=== PATIENT | female | born 1945 | race Caucasian/White ===

== ENCOUNTER 2016-07-31 12:17 | Inpatient (IN) | payer OTHER, MEDICARE ==
[2016-07-31 13:09] LABS: COLOR YELLOW; LEUKOCYTE ESTERASE,URINE NEGATIVE (NEGATIVE); NITRITE,URINE NEGATIVE (NEGATIVE)
[2016-07-31 13:26] LABS: % IMMATURE GRANULYOCYTES 0.8 % (0.0-1.1); ABSOLUTE IMMATURE GRANULOCYTES 0.04 10^3/uL (0.00-0.10); ADD DIFF? NO; ADD MORPH? NO; ADD SCAN? NO; ATYPICAL LYMPHOCYTE FLAG 10 (0-99); FRAGMENT RBC FLAG 0 (0-99); HEMATOCRIT 36.8 % (38.0-47.0); HEMOGLOBIN 12.6 g/dL (12.6-16.3); LEFT SHIFT FLG 0 (0-99); LIPEMIA HEMOLYSIS FLAG 90 (0-99); MEAN CELL HEMOGLOBIN 32.3 pg (27.9-34.1); MEAN CELL HEMOGLOBIN CONCENTR. 34.2 g/dL (32.4-36.7); MEAN CELL VOLUME 94.4 fL (81.5-99.8); MEAN PLATELET VOLUME 8.5 fL (8.7-11.7); PLATELET CLUMPS FLAG 0 (0-99); PLATELET COUNT 254 10^3/uL (150-400); RED CELL DISTRIBUTION WIDTH 12.3 % (11.5-15.2)
[2016-07-31 13:39] LABS: ANION GAP 10 mEq/L (8-16); CALCIUM 9.5 mg/dL (8.5-10.4); CARBON DIOXIDE 24 mEq/l (22-31); CHLORIDE 99 mEq/L (97-110); CREATININE 0.7 mg/dL (0.6-1.0); GLOMERULAR FILTRATION RATE > 60; GLUCOSE 94 mg/dL (70-100); POTASSIUM 3.6 mEq/L (3.5-5.2); SODIUM 133 mEq/L (134-144)
--- NOTE | 2016-07-31 13:43 | EDPHY ---
H & P Stated Complaint: Per Dr Suarez failure to thrive Time Seen by Provider: 07/31/16 12:50 HPI/ROS: CHIEF COMPLAINT: Failure to thrive HISTORY OF PRESENT ILLNESS: The patient presents to the emergency department with failure to thrive. She has a history of expressive dementia. She apparently has been living in [facility]. She had a friend bring her to her primary care provider's office today where she was noted to be disheveled, inappropriately undressing a markedly confused. The patient is unable to tell me which medications she takes. The patient does deny any acute complaints of pain. She is extremely disoriented and does not know time or place. REVIEW OF SYSTEMS: A comprehensive 10 point review of systems is unobtainable secondary to her dementia Source: Patient Exam Limitations: No limitations - Personal History Current Tetanus/Diphtheria Vaccine: Unsure Current Tetanus Diphtheria and Acellular Pertussis (TDAP): Unsure - Medical/Surgical History Hx Asthma: No Hx Chronic Respiratory Disease: No Hx Diabetes: No Hx Cardiac Disease: No Hx Renal Disease: No Hx Cirrhosis: No Hx Alcoholism: No Hx HIV/AIDS: No Hx Splenectomy or Spleen Trauma: No Other PMH: unable to give information - Social History Smoking Status: Never smoked - Physical Exam Exam: General Appearance: Thin frail cachectic woman, no acute distress Eyes: Pupils equal and round no pallor or injection ENT, Mouth: Mucous membranes moist Respiratory: There are no retractions, lungs are clear to auscultation Cardiovascular: Regular rate and rhythm Gastrointestinal: Abdomen is soft and nontender, no masses, bowel sounds normal Neurological: Alert and oriented x1, 5/5 strength noted all 4 extremities, cranial nerves 2-12 intact Skin: Warm and dry, no rashes Musculoskeletal: Neck is supple nontender Extremities: symmetrical, full range of motion Constitutional: Initial Vital Signs Temperature (C) 37.0 C 07/31/16 12:19 Heart Rate 83 07/31/16 12:19 Respiratory Rate 16 07/31/16 12:19 Blood Pressure 122/63 H 07/31/16 12:19 O2 Sat (%) 95 07/31/16 12:19 O2 Delivery Mode Room Air Allergies/Adverse Reactions: No Known Allergies Allergy (Verified 07/31/16 12:25) Home Medications: Medication Instructions Recorded oxyCODONE IR [Oxycodone Ir (*)] 2.5 mg PO DAILY@1800 PRN 04/27/12 Acetaminophen [Tylenol ES 500 mg 500 mg PO TID 07/31/16 (*)] Diclofenac Sodium [Voltaren Gel 2 gm TP QID 07/31/16 (*)] Donepezil HCl [Aricept 5 MG (*)] 5 mg PO HS 07/31/16 Duloxetine HCl [Cymbalta] 20 mg PO BID 07/31/16 Estradiol [Estrace Vaginal (*)] 0.125 cholo VG Q4D@21 07/31/16 Glucosamine/Chondroitin 1 each PO DAILY 07/31/16 [Glucosamine/Chondroitin (*)] Herbals/Supplements -Info Only 1 ea PO DAILY 07/31/16 Ibuprofen [Motrin (*)] 200 mg PO BID 07/31/16 Levothyroxine [Synthroid 150 mcg 150 mcg PO HOPKINS 07/31/16 (*)] Levothyroxine [Synthroid 75 mcg 75 mcg PO MOTUWETHFRSA 07/31/16 (*)] Melatonin [Melatonin 3 MG (*)] 3 mg PO HS 07/31/16 traZODone [traZODONE 50MG (*)] 50 - 100 mg PO HS PRN 07/31/16 Medical Decision Making - Diagnostics Imaging: CT head without contrast: Atrophy noted, no acute intracranial process present. ED Course/Re-evaluation: The patient is referred to the emergency department from her primary care provider Dr. Maye Suarez. The patient is unable to provide much history but in speaking with Dr. Suarez, the patient has had fairly significant progression of her dementia and now has significant failure to thrive. The patient is currently being investigated through the Adult protective Services. In the emergency department, the patient is noted to be in no acute distress she is quite deconditioned and confused. The patient's head CT scan demonstrates no evidence of an acute intracranial process. The patient's laboratory studies do not demonstrate an obvious acute explanation for encephalopathy. Consultation is made with the hospitalist service for admission. She will be admitted by Dr. Jean Marie Ruiz this evening. Differential Diagnosis: Differential diagnosis considered includes intracranial hemorrhage, urinary tract infection, dehydration, metabolic abnormality, progressive dementia - Data Points Laboratory Results: Laboratory Results 07/31/16 13:10 07/31/16 13:10 07/31/16 07/31/16 13:10 12:45 WBC 5.02 10^3/uL (3.80-9.50) RBC 3.90 L 10^6/uL (4.18-5.33) Hgb 12.6 g/dL (12.6-16.3) Hct 36.8 L % (38.0-47.0) MCV 94.4 fL (81.5-99.8) MCH 32.3 pg (27.9-34.1) MCHC 34.2 g/dL (32.4-36.7) RDW 12.3 % (11.5-15.2) Plt Count 254 10^3/uL (150-400) MPV 8.5 L fL (8.7-11.7) Neut % (Auto) 78.1 H % (39.3-74.2) Lymph % (Auto) 13.3 L % (15.0-45.0) Tift % (Auto) 7.0 % (4.5-13.0) Eos % (Auto) 0.2 L % (0.6-7.6) Baso % (Auto) 0.6 % (0.3-1.7) Nucleat RBC Rel Count 0.0 % (0.0-0.2) Absolute Neuts (auto) 3.92 10^3/uL (1.70-6.50) Absolute Lymphs (auto) 0.67 L 10^3/uL (1.00-3.00) Absolute Monos (auto) 0.35 10^3/uL (0.30-0.80) Absolute Eos (auto) 0.01 L 10^3/uL (0.03-0.40) Absolute Basos (auto) 0.03 10^3/uL (0.02-0.10) Absolute Nucleated RBC 0.00 10^3/uL (0-0.01) Immature Gran % 0.8 % (0.0-1.1) Immature Gran # 0.04 10^3/uL (0.00-0.10) Sodium 133 L mEq/L (134-144) Potassium 3.6 mEq/L (3.5-5.2) Chloride 99 mEq/L (97-110) Carbon Dioxide 24 mEq/l (22-31) Anion Gap 10 mEq/L (8-16) BUN 22 mg/dL (7-23) Creatinine 0.7 mg/dL (0.6-1.0) Estimated GFR > 60 Glucose 94 mg/dL (70-100) Calcium 9.5 mg/dL (8.5-10.4) Urine Color YELLOW Urine Appearance MODERATELY TURBID Urine pH 6.0 (5.0-7.5) Ur Specific [place] 1.014 (1.002-1.030) Urine Protein NEGATIVE (NEGATIVE) Urine Ketones TRACE H (NEGATIVE) Urine Blood NEGATIVE (NEGATIVE) Urine Nitrate NEGATIVE (NEGATIVE) Urine Bilirubin NEGATIVE (NEGATIVE) Urine Urobilinogen NEGATIVE EU (0.2-1.0) Ur Leukocyte Esterase NEGATIVE (NEGATIVE) Ur Culture Indicated? NOT INDICATED (NI) Urine Glucose NEGATIVE (NEGATIVE) Departure - Departure Disposition: [facility] Inpatient Acute Clinical Impression: Dementia, Failure to thrive Condition: Fair
--- NOTE | 2016-07-31 14:53 | CT ---
CT Brain (Without Contrast) 1438 hours History: Acute confusion. Comparison: CT May 2012. Technique: Axial computed tomographic images of the brain without contrast. Dose reduction techniques were utilized. Findings: Ventricles, cisterns, and sulci are widened consistent with atrophy. No hydrocephalus, mid line shift/herniation, or epidural/subdural hematomas. No acute intraparenchymal hemorrhage or mass e ffect. Cerebrovascular atherosclerosis. Bone windows demonstrate no displaced fractures. Paranasal sinuses and mastoid air cells are clear. Impression: 1. Mild atrophy. 2. No acute hemorrhage, hydrocephalus, or mass effect. 3. Cerebrovascular atherosclerosis. 4. No definite acute infarct. 5. No epidural or subdural hematoma. 6. Consider MRI of the brain without and with contrast enhancement, if there is continued clinical co ncern. Findings and recommendations discussed with Emergency Department physician, Dr. Nir Mayo, at 14 45 hours today. Final report concurs with initial preliminary interpretation.
[2016-07-31] MEDS ORDERED: ONDANSETRON DISINTEGRATING 4 MG TAB PO PRN (16:01)
[2016-07-31] MEDS ORDERED: NS 1,000 ML IV ONE (16:01)
[2016-07-31] MEDS ORDERED: ONDANSETRON 4 MG/2 ML VIAL IVP PRN (16:01)
--- NOTE | 2016-07-31 17:04 | GHP ---
[f rep st] HISTORY AND PHYSICAL DATE OF ADMISSION: 07/31/2016 CHIEF COMPLAINT: Brought in by friend. HISTORY OF PRESENT ILLNESS: This 71-year-old female who was found by a friend to be living in [facility], brought her in to see her primary care physician, Dr. Suarez, today. Apparently in Dr. Fortino avila's office, she was acting quite abnormal, thus she did not feel that she was safe to return home. She was thus sent to the ED for further evaluation. According to Dr. Suarez, she has had about a 2 y ear history of dementia, the progression of which has accelerated significantly over the last 2 month s. To me, she is calm. She is actually alert and oriented x3. She is answering questions appropriately . It is not clear exactly why she was here or have a good understanding of her medical problems to p rovide a good history. A review of systems is quite negative overall, other than a dry cough. Apparently, Adult Protective Services has been involved in her care. It is unclear exactly where the y are at with her at this point. PAST MEDICAL/SURGICAL HISTORY: Hypothyroid, chronic neck pain, basal cell carcinoma. MEDICATIONS: Please see medication reconciliation. ALLERGIES: None. FAMILY HISTORY: Parents are . SOCIAL HISTORY: As per HPI. REVIEW OF SYSTEMS: A 10-point review of systems is conducted and is negative, except per HPI. PHYSICAL EXAM: VITAL SIGNS: Blood pressure is 123/64, heart rate 65, respiration rate 14, saturatin g 96% on room air, temperature is 36.7. GENERAL: The patient is a pleasant female who appears comfo rtable, in no acute distress. HEENT: Shows her to be normocephalic, atraumatic. There is no sclera l icterus. CARDIOVASCULAR: Regular rate and rhythm. No murmurs, rubs, or gallops. PULMONARY: Cora gs clear bilaterally. ABDOMEN: Soft, nontender, nondistended. SKIN: Shows her to have mild erythe ma and scaling on her bilateral lower extremities. : No Lim. NEUROLOGIC: Shows her to be aler t and oriented x3. She is moving all extremities. She has an overall nonfocal neurologic exam. PSY CHIATRIC: Shows a normal mood and affect. LABS: CBC is relatively unremarkable. Sodium is 133. Urinalysis shows trace ketones, otherwise neg ative. I discussed this with Dr. Mayo, will admit for further care. IMAGING: I reviewed her head CT scan which shows nothing acute. It does show some mild atrophy. IMPRESSION AND PLAN: This is a 71-year-old female admitted with essentially failure to thrive. 1. Failure to thrive. She was found by her friend living in [facility], sent in by her primary care ph ysician who was very concerned about her. This is Dr. Suarez. Will need to involve Case Management. Apparently, Adult Protective Services has been involved in her care. 2. Dementia. Per PCP report, this has been accelerating. I have checked a TSH, though this was onl y slightly elevated at 6 about 2 months ago. I have also checked a B12. 3. Mild hyponatremia. Will give her a bolus of 1 L, but not give her continuous IV fluids so that w e do not tether her and cause worse in-hospital delirium. 4. Hypothyroid. As above, check TSH, will continue her medications. 5. Code status. Will need to clarify this. I will empirically make her full code. She did affirm that she has a living will. 6. Venous thromboembolism risk. She is at moderate risk. I will give her Lovenox for venous thromb oembolism prophylaxis. /[id number]/MODL
[2016-07-31] MEDS: LEVOTHYROXINE 75 MCG TAB PO SCH (17:20)
[2016-07-31] MEDS: oxyCODONE IR 5 MG TAB PO PRN (18:31)
[2016-07-31] MEDS ORDERED: DICLOFENAC SODIUM TP SCH (21:00)
[2016-07-31] MEDS: MELATONIN 3 MG TAB PO SCH (21:59)
[2016-07-31] MEDS: DULoxetine 20 MG CAP PO SCH (21:59)
[2016-07-31] MEDS: DONEPEZIL HCL 5 MG TAB PO SCH (21:59)
[2016-07-31] MEDS: IBUPROFEN 200 MG TAB PO SCH (22:00)
[2016-07-31] MEDS: DICLOFENAC SODIUM TP SCH (22:34)
[2016-07-31] MEDS: ESTRADIOL 42.5 GM CRTUBE VG SCH (22:58)
[2016-08-01 05:12] LABS: % IMMATURE GRANULYOCYTES 0.4 % (0.0-1.1); ABSOLUTE IMMATURE GRANULOCYTES 0.02 10^3/uL (0.00-0.10); ADD DIFF? NO; ADD MORPH? NO; ADD SCAN? NO; ATYPICAL LYMPHOCYTE FLAG 10 (0-99); FRAGMENT RBC FLAG 0 (0-99); HEMATOCRIT 31.6 % (38.0-47.0); HEMOGLOBIN 10.8 g/dL (12.6-16.3); LEFT SHIFT FLG 0 (0-99); LIPEMIA HEMOLYSIS FLAG 90 (0-99); MEAN CELL HEMOGLOBIN 32.5 pg (27.9-34.1); MEAN CELL HEMOGLOBIN CONCENTR. 34.2 g/dL (32.4-36.7); MEAN CELL VOLUME 95.2 fL (81.5-99.8); MEAN PLATELET VOLUME 8.9 fL (8.7-11.7); PLATELET CLUMPS FLAG 0 (0-99); PLATELET COUNT 214 10^3/uL (150-400); RED BLOOD CELL COUNT 3.32 10^6/uL (4.18-5.33); RED CELL DISTRIBUTION WIDTH 12.3 % (11.5-15.2)
[2016-08-01 05:36] LABS: ALANINE AMINOTRANSFERASE 46 IU/L (9-52); ALBUMIN 3.5 g/dL (3.5-5.0); ALKALINE PHOSPHATASE 37 IU/L (38-126); ANION GAP 8 mEq/L (8-16); ASPARTATE AMINOTRANSFERASE 32 IU/L (14-46); BILIRUBIN,TOTAL 0.5 mg/dL (0.1-1.4); CARBON DIOXIDE 23 mEq/l (22-31); CHLORIDE 103 mEq/L (97-110); CREATININE 0.5 mg/dL (0.6-1.0); GLOMERULAR FILTRATION RATE > 60; GLUCOSE 64 mg/dL (70-100); POTASSIUM 3.7 mEq/L (3.5-5.2); SODIUM 134 mEq/L (134-144)
[2016-08-01] MEDS: LEVOTHYROXINE 75 MCG TAB PO SCH (06:06)
[2016-08-01] MEDS: oxyCODONE IR 5 MG TAB PO PRN ×3 (06:06→21:35)
[2016-08-01] MEDS: DICLOFENAC SODIUM TP SCH ×4 (06:07→20:54)
--- NOTE | 2016-08-01 08:34 | HOSPPROG ---
Hospitalist Progress Note Assessment/Plan: Patient is a 71-year-old female who was brought to see her primary care provider yesterday. Patient has a history of dementia which has been progressing. There is concern about her in her home environment. Adult protective Services is involved. Today is my 1st encounter with the patient. Chart reviewed. #. failure to thrive - speech therapy, physical therapy and occupation therapy to further evaluate her - she has been declining steadily and Adult protective Services have been involved with her - BMI is 16 / concern she is not getting adequate intake #. hyponatremia - resolved with fluids #. anemia - hemoglobin hematocrit lower than her baseline - will heme her stools #. 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 hypothyroidism / TSH is low at 0.4 -hold Synthroid #. chronic neck pain with associated degenerative disc disease - patient states that her neck always hurts #. DVT prophylaxis. Low molecular weight heparin. Plan: Ethics to evaluate her/ she answers my questions appropriately but has no insight. In addition I have asked for Neurology to evaluate her. Subjective: pat has no specific complaints. She is complaining that there is too much noise in the hospital and would rather I left her alone. Objective: Vital Signs Temp Pulse Resp BP Pulse Ox 36.7 C 70 16 119/66 95 08/01/16 07:25 08/01/16 07:25 08/01/16 07:25 08/01/16 07:25 08/01/16 07:25 Laboratory Results 08/01/16 04:29 08/01/16 04:29 07/31/16 08/01/16 08/02/16 05:59 05:59 05:59 Intake Total 350 Balance 350 - Physical Exam Constitutional: no apparent distress, cachectic, No not in pain ( neck area) Eyes: PERRL Ears, Nose, Mouth, Throat: hearing normal Cardiovascular: regular rate and rhythym Respiratory: no respiratory distress Gastrointestinal: normoactive bowel sounds Skin: warm Musculoskeletal: full muscle strength Neurologic: other ( alert and oriented to herself and her friend at the bedside. Knows she is in the hospital. Does not know why she is here. And prefers that I quit talking with her) Psychiatric: thought process linear, poor insight, poor judgement ICD10 Worksheet Patient Problems: Problems Problem Status Diagnosed Dementia Acute Failure to thrive Acute
[2016-08-01] MEDS: DULoxetine 20 MG CAP PO SCH ×2 (09:59→20:49)
[2016-08-01] MEDS: GLUCOSAMINE/CHONDROITIN CAP PO SCH (09:59)
[2016-08-01] MEDS: IBUPROFEN 200 MG TAB PO SCH ×2 (10:00→20:49)
[2016-08-01] MEDS: ENOXAPARIN 40 MG/0.4 ML SYR SC SCH (10:03)
[2016-08-01] MEDS: MELATONIN 3 MG TAB PO SCH (20:49)
[2016-08-01] MEDS: DONEPEZIL HCL 5 MG TAB PO SCH (20:49)
[2016-08-01] MEDS: traZODone 50 MG TAB PO PRN (21:37)
[2016-08-02] MEDS: DICLOFENAC SODIUM TP SCH ×4 (02:17→21:03)
[2016-08-02 05:15] LABS: HEMATOCRIT 34.3 % (38.0-47.0); HEMOGLOBIN 11.7 g/dL (12.6-16.3)
[2016-08-02] MEDS: IBUPROFEN 200 MG TAB PO SCH ×2 (07:54→21:15)
[2016-08-02] MEDS: DULoxetine 20 MG CAP PO SCH ×2 (07:55→21:16)
[2016-08-02] MEDS: ENOXAPARIN 40 MG/0.4 ML SYR SC SCH (07:55)
[2016-08-02] MEDS: GLUCOSAMINE/CHONDROITIN CAP PO SCH (07:55)
--- NOTE | 2016-08-02 09:24 | PDCONSULT ---
Nuclear Medical Technologist Note: HOSPITAL NEUROLOGY CONSULT REQUESTING: Bess Farris NP REASON: possible dementia HPI: This is a 71-year-old right-handed woman with a associates degree who presented to our facility on July 31 with concerns for her cognitive status and well being. The patient was brought to our facility for multiple concerns. Her primary care provider has been concerned over the years about a progressive dementing process. She was apparently found wandering the streets in her neighborhood without any clothes on and subsequently her home environment was survey and was found to be in a state of discord. Adult protective Services has been investigating her ability to care for herself in her well-being. There has also been concerned about protein calorie malnutrition as the patient has been losing weight. She was brought here for further evaluation of her cognitive status as well as stabilization of her nutrition and for possible placement. On my interview, the patient does not have any insight into her cognitive deficits. She is unsure why she is admitted to our facility. She continually refers to a friends who knows about her history and also refers to the medical chart for any sort of historical background. She has been pacing around her room and has been asking to wander around the halls. She is mainly concerned about the temperature of her room and staying warm, specifically perseverating on the temperature of the floor. Otherwise, I cannot elicit any significant history from the patient due to her poor insight and judgment. Her medical screening has been unremarkable for any toxic/metabolic/infectious disturbance. ROS: As per the HPI, otherwise a complete 12 point ROS was performed and is negative ALLERGIES AND MEDS: As recorded in the EMR - reviewed and reconciled PFSH: As per the intake H&P by Dr. Ruiz from 07/31/16 EXAM: GEN: cachectic woman pacing about her room in NAD HEENT: bitemporal wasting, sclera anicteric, conjunctiva not injected, MMM, oropharynx clear, no scalp tenderness NECK: supple, nontender, no meningismus CV: RRR s1 s2 wo m/r/c/g. Carotid pulses 2+ wo bruit NEURO: MS: awake, alert, oriented to all spheres except sitaution and numerical date. Speech nondysarthric. No language disturbance. Follows commands. Attends to both sides. Clear episodic/recent memory dysfunction. Mood euthymic. Adequate fund of knowledge. Poor insight and judgement. MoCA (-1 clock draw hands, -5 attention, -1 language repeating, -5 recall, -1 date). She is easily distracted and tangential. Very poor attention. CN: pupils 3mm round and reactive. Intolerant of fundoscopy. VFF. Primary gaze centered. Full ocular motility with motor impersistence and saccadic intrusion on smooth pursuit. Facial sensation preserved. Face symmetric. Palatoglossal movements intact. Shoulder shrug and head turn strong. MOTOR: reduced bulk throughout. Normal tone. Fine postural tremor without intention worsening. Full power throughout. SENSORY: intact to all modalities throughout. No extinction. COORD: no ataxia FN/HS. Cameron preserved. Romberg neg. REFLEX: plantars down. No clonus. DTRS trace. GAIT: rises unassisted. Narrow base. Intact stride length/heel strike/toe lift /arm swing. Turns with 2 steps. DATA: Labs reviewed in EMR. B12 and TSH checked CT head wo reviewed - mild volume loss, nothing acute IMPRESSION AND RECOMMENDATIONS: // DEMENTIA // FAILURE TO THRIVE // HYPOTHYROIDISM - ON REPLACEMENT Patient with concerns of progressive cognitive decline. She clearly has attentional issues and memory dysfunction. She has no insight and poor judgement. She tends to wander, as well. I think concern for her ability to care for herself is valid. She is high risk for elopement in any environment and I think she does pose a safety risk if left to her own devices (such as leaving stove burners on, leaving faucets running, poor hygiene, unable to maintain clean/safe living environment, wandering into unsafe situations). Specific subtype of dementia unclear, but likely Alzheimer type pathology. I recommend placement in a supervised living facility. Delirium precautions - lights on/window shade up from [id number], frequent orientation, sensory optimization, regular mealtimes, OOB to chair, regular supervised ambulation, family/friends at bedside, nonpharmacologic sleep enhancement with cool/quiet/dark room at night. Avoid sedating/disinhibiting drugs. Nutritional optimization
--- NOTE | 2016-08-02 16:07 | HOSPPROG ---
Hospitalist Progress Note Assessment/Plan: Patient is a 71-year-old female who was brought to see her primary care provider yesterday. Patient has a history of dementia which has been progressing. There is concern about her in her home environment. Adult protective Services is involved. #. failure to thrive - speech therapy, physical therapy and occupation have seen her - she has been declining steadily and Adult protective Services have been involved with her - BMI is 16 / concern she is not getting adequate intake - she is eating well here #. hyponatremia - resolved with fluids #. anemia - hemoglobin hematocrit lower than her baseline/repeat labs today show improvement - will heme her stools #. 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 hypothyroidism / TSH is low at 0.4 -hold Synthroid #. chronic neck pain with associated degenerative disc disease - patient states that her neck always hurts -no complaints today #. DVT prophylaxis. Low molecular weight heparin. Plan: will continue care in the hospital/ she wanders frequently, but comes back to her room with direction. Pat is unable to appreciate why she is her, she has poor insight and reasoning (while ST was working with her, she was unable to focus, understand how to use a pill box), she is tangential, unable to focus or rationalize. She perseverates on being cold and doesn't want to shake my hand because it may be cold. She is not decisional today when I evaluated her. Subjective: Pat has no complaints, but is cold. Objective: Vital Signs Temp Pulse Resp BP Pulse Ox 36.6 C 95 18 121/69 H 96 08/02/16 07:38 08/02/16 07:38 08/02/16 07:38 08/02/16 07:38 08/02/16 07:38 Laboratory Results 08/02/16 04:53 08/01/16 04:29 08/01/16 08/02/16 08/03/16 05:59 05:59 05:59 Intake Total 350 1400 Balance 350 1400 - Physical Exam Constitutional: no apparent distress, cachectic Eyes: PERRL Ears, Nose, Mouth, Throat: hearing normal Respiratory: no respiratory distress Skin: warm Musculoskeletal: full muscle strength Neurologic: other (alert and oriented to herself and place, but difficult to get her to focus on answering questions/she changes the topic frequently) Psychiatric: interacting appropriately, poor insight, poor judgement ICD10 Worksheet Patient Problems: Problems Problem Status Diagnosed Dementia Acute Failure to thrive Acute
[2016-08-02] MEDS: ACETAMINOPHEN 325 MG TAB PO PRN (18:05)
[2016-08-02] MEDS: MELATONIN 3 MG TAB PO SCH (21:16)
[2016-08-02] MEDS: traZODone 50 MG TAB PO PRN (21:16)
[2016-08-02] MEDS: DONEPEZIL HCL 5 MG TAB PO SCH (21:17)
[2016-08-03] MEDS: DICLOFENAC SODIUM TP SCH ×4 (01:26→20:22)
[2016-08-03] MEDS: IBUPROFEN 200 MG TAB PO SCH ×2 (08:38→20:26)
[2016-08-03] MEDS: GLUCOSAMINE/CHONDROITIN CAP PO SCH (08:38)
[2016-08-03] MEDS: ACETAMINOPHEN 325 MG TAB PO PRN (08:38)
[2016-08-03] MEDS: DULoxetine 20 MG CAP PO SCH ×2 (08:38→20:26)
[2016-08-03] MEDS: ENOXAPARIN 40 MG/0.4 ML SYR SC SCH (08:42)
--- NOTE | 2016-08-03 16:28 | HOSPPROG ---
Hospitalist Progress Note Assessment/Plan: Patient is a 71-year-old female who was brought to see her primary care provider yesterday. Patient has a history of dementia which has been progressing. There is concern about her in her home environment. Adult protective Services is involved. #. failure to thrive - speech therapy, physical therapy and occupation have seen her - she has been declining steadily and Adult protective Services have been involved with her - BMI is 16 / concern she is not getting adequate intake - she is eating well here #. hyponatremia - resolved with fluids #. anemia - hemoglobin hematocrit lower than her baseline/repeat labs today show improvement - will heme her stools #. 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 hypothyroidism / TSH is low at 0.4 -hold Synthroid #. chronic neck pain with associated degenerative disc disease - patient states that her neck always hurts - no complaints t #. DVT prophylaxis. Low molecular weight heparin. Plan: no change/ she is alert,calm and appropriate/ continues to be tangental. Subjective: Pat has no complaints/ ambulates frequently Objective: Vital Signs Temp Pulse Resp BP Pulse Ox 37.0 C 79 16 116/57 L 98 08/03/16 16:00 08/03/16 16:00 08/03/16 16:00 08/03/16 16:00 08/03/16 16:00 Laboratory Results 08/02/16 04:53 08/01/16 04:29 08/02/16 08/03/16 08/04/16 05:59 05:59 05:59 Intake Total 1400 800 Balance 1400 800 - Physical Exam Constitutional: no apparent distress, other (thin) Eyes: PERRL Respiratory: no respiratory distress Gastrointestinal: normoactive bowel sounds Skin: warm Musculoskeletal: full muscle strength Neurologic: other (alert and oriented to herself, place) Psychiatric: interacting appropriately, poor insight, poor judgement ICD10 Worksheet Patient Problems: Problems Problem Status Diagnosed Dementia Acute Failure to thrive Acute
[2016-08-03] MEDS: MELATONIN 3 MG TAB PO SCH (20:26)
[2016-08-03] MEDS: traZODone 50 MG TAB PO PRN (20:26)
[2016-08-03] MEDS: DONEPEZIL HCL 5 MG TAB PO SCH (20:26)
[2016-08-04] MEDS: ACETAMINOPHEN 325 MG TAB PO PRN ×2 (04:04→21:06)
[2016-08-04] MEDS: oxyCODONE IR 5 MG TAB PO PRN (04:13)
[2016-08-04] MEDS ORDERED: LEVOTHYROXINE 150 MCG TAB PO SCH (06:00)
[2016-08-04] MEDS: IBUPROFEN 200 MG TAB PO SCH ×2 (08:47→21:05)
[2016-08-04] MEDS: ENOXAPARIN 40 MG/0.4 ML SYR SC SCH (08:49)
[2016-08-04] MEDS: DULoxetine 20 MG CAP PO SCH ×2 (08:49→21:06)
[2016-08-04] MEDS: GLUCOSAMINE/CHONDROITIN CAP PO SCH (08:49)
--- NOTE | 2016-08-04 13:07 | HOSPPROG ---
Hospitalist Progress Note Assessment/Plan: Patient is a 71-year-old female who was brought to see her primary care provider yesterday. Patient has a history of dementia which has been progressing. There is concern about her in her home environment. Adult protective Services is involved. #. failure to thrive - speech therapy, physical therapy and occupation have seen her - she has been declining steadily and Adult protective Services have been involved with her - BMI is 16 / concern she is not getting adequate intake - she is eating well here #. hyponatremia - resolved with fluids #. anemia - hemoglobin hematocrit lower than her baseline/repeat labs show improvement - will heme her stools #. 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 hypothyroidism / TSH is low at 0.4 -hold Synthroid #. chronic neck pain with associated degenerative disc disease - patient states that her neck always hurts - no complaints t #. DVT prophylaxis. Low molecular weight heparin. Plan: no change/ she is alert,calm and appropriate/ continues to be tangental. She is clearly not decisional/ she is oriented, but has no insight. Subjective: patient says she didn't sleep well due to pain but unable to tell me where. Objective: Vital Signs Temp Pulse Resp BP Pulse Ox 36.6 C 80 12 124/70 H 97 08/04/16 08:29 08/04/16 08:29 08/04/16 08:29 08/04/16 08:29 08/04/16 08:29 Laboratory Results 08/02/16 04:53 08/01/16 04:29 08/03/16 08/04/16 08/05/16 05:59 05:59 05:59 Intake Total 800 Balance 800 - Physical Exam Constitutional: no apparent distress, other (thin) Eyes: PERRL Ears, Nose, Mouth, Throat: hearing normal Respiratory: no respiratory distress Skin: warm Musculoskeletal: full muscle strength Neurologic: other (alert and oriented , pacing frequently, changes the subject frequently) Psychiatric: not anxious ICD10 Worksheet Patient Problems: Problems Problem Status Diagnosed Dementia Acute Failure to thrive Acute
[2016-08-04] MEDS: MELATONIN 3 MG TAB PO SCH (21:05)
[2016-08-04] MEDS: traZODone 50 MG TAB PO PRN (21:05)
[2016-08-04] MEDS: DONEPEZIL HCL 5 MG TAB PO SCH (21:06)
[2016-08-04] MEDS: ESTRADIOL 42.5 GM CRTUBE VG SCH (21:16)
[2016-08-05] MEDS: ACETAMINOPHEN 325 MG TAB PO PRN (03:11)
[2016-08-05] MEDS: IBUPROFEN 200 MG TAB PO SCH ×3 (09:38→22:24)
[2016-08-05] MEDS: DULoxetine 20 MG CAP PO SCH ×3 (09:39→22:24)
[2016-08-05] MEDS: ENOXAPARIN 40 MG/0.4 ML SYR SC SCH (09:39)
[2016-08-05] MEDS: GLUCOSAMINE/CHONDROITIN CAP PO SCH ×2 (09:39→18:08)
--- NOTE | 2016-08-05 10:34 | HOSPPROG ---
Hospitalist Progress Note Assessment/Plan: Patient is a 71-year-old female who was brought to see her primary care provider yesterday. Patient has a history of dementia which has been progressing. There is concern about her in her home environment. Adult protective Services is involved. #. Change in change in level of consciousness - patient was up earlier today but now will not interact - when I try to open her eyes she squints and pulls her eyelids down - she does not pull away from a sternal rub but responded when ice was placed on her left groin area - not likely a stroke /will get a stat CT now, glucose is stable, will get a CBC and complete metabolic panel -spoke with Dr Hull and he will re-evaluate her #. failure to thrive - speech therapy, physical therapy and occupation have seen her - she has been declining steadily and Adult protective Services have been involved with her - BMI is 16 / concern she is not getting adequate intake - she is eating well here #. hyponatremia - resolved with fluids #. anemia - hemoglobin hematocrit lower than her baseline #. 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 hypothyroidism / TSH is low at 0.4 -hold Synthroid #. chronic neck pain with associated degenerative disc disease - patient states that her neck always hurts - no complaints t #. DVT prophylaxis. Low molecular weight heparin. Plan: get a stat CT scan and labs, Dr Hull to see later today/ when stable , can go to [place] memory care unit/ a bed is available Subjective: Pat is not interacting with me. Objective: Vital Signs Temp Pulse Resp BP Pulse Ox 36.3 C 88 16 139/68 H 96 08/05/16 07:46 08/05/16 09:58 08/05/16 09:58 08/05/16 09:58 08/05/16 09:58 Laboratory Results 08/02/16 04:53 08/01/16 04:29 - Physical Exam Constitutional: no apparent distress (vital signs are stable) Cardiovascular: regular rate and rhythym Respiratory: no respiratory distress Skin: warm Neurologic: No facial droop Psychiatric: other (not responding, squints eyelids when I try to open her eyes , when arm is lifted above her head, she places it to her side.) ICD10 Worksheet Patient Problems: Problems Problem Status Diagnosed Dementia Acute Failure to thrive Acute
[2016-08-05 10:44] LABS: % IMMATURE GRANULYOCYTES 0.6 % (0.0-1.1); ABSOLUTE IMMATURE GRANULOCYTES 0.03 10^3/uL (0.00-0.10); ADD DIFF? NO; ADD MORPH? NO; ADD SCAN? NO; ATYPICAL LYMPHOCYTE FLAG 0 (0-99); FRAGMENT RBC FLAG 0 (0-99); HEMATOCRIT 37.4 % (38.0-47.0); HEMOGLOBIN 12.7 g/dL (12.6-16.3); LEFT SHIFT FLG 0 (0-99); LIPEMIA HEMOLYSIS FLAG 90 (0-99); MEAN CELL HEMOGLOBIN 32.2 pg (27.9-34.1); MEAN CELL VOLUME 94.9 fL (81.5-99.8); MEAN PLATELET VOLUME 8.7 fL (8.7-11.7); PLATELET CLUMPS FLAG 0 (0-99); PLATELET COUNT 264 10^3/uL (150-400); RED BLOOD CELL COUNT 3.94 10^6/uL (4.18-5.33); RED CELL DISTRIBUTION WIDTH 12.4 % (11.5-15.2)
[2016-08-05 11:13] LABS: ALANINE AMINOTRANSFERASE 60 IU/L (9-52); ALBUMIN 4.5 g/dL (3.5-5.0); ALKALINE PHOSPHATASE 50 IU/L (38-126); ANION GAP 9 mEq/L (8-16); ASPARTATE AMINOTRANSFERASE 39 IU/L (14-46); BILIRUBIN,TOTAL 0.6 mg/dL (0.1-1.4); CALCIUM 9.8 mg/dL (8.5-10.4); CARBON DIOXIDE 25 mEq/l (22-31); CHLORIDE 99 mEq/L (97-110); CREATININE 0.6 mg/dL (0.6-1.0); GLOMERULAR FILTRATION RATE > 60; GLUCOSE 107 mg/dL (70-100); POTASSIUM 4.4 mEq/L (3.5-5.2); SODIUM 133 mEq/L (134-144); TOTAL PROTEIN 7.4 g/dL (6.3-8.2)
--- NOTE | 2016-08-05 11:25 | CT ---
CT Head Without Contrast History: Unresponsive. Comparison: CT head July 31, 2016. Technique: Axial unenhanced images were obtained from the vertex through the skull base. Dose reduct ion techniques were utilized. Findings: Alford-white differentiation is preserved. There is mild diffuse cerebral atrophy with scatte red periventricular and subcortical low attenuation, suggesting chronic microvascular ischemic gliosi s. No intracranial hemorrhage is identified. No extraaxial fluid collections are identified. There is no mass, mass effect or evidence of infarct. Atherosclerotic calcification is present in the dista l internal carotid and vertebral arteries. The skull and skull base are unremarkable. The paranasal sinuses and mastoid air cells are normally aerated. Impression: 1. No acute intracranial findings. 2. Diffuse cerebral atrophy with scattered periventricular and subcortical low attenuation consistent with chronic microvascular ischemic gliosis. Findings were communicated via secure Voalte text to Bess Farris today at 1117 hours.
[2016-08-05] MEDS ORDERED: NS 1,000 ML IV SCH (12:45)
--- NOTE | 2016-08-05 15:45 | NEUROPROG ---
Assessment: Dementia with psychogenic unresponsiveness perhaps triggered by stress of recent events. There is not evidence for seizures or stroke. Unfortunately, there is nothing to do for now except monitor and support her and this will likely resolve on its own. Subjective: Pt case reviewed and consult from Dr. Maximus campo from a few days ago. She has become unresponsive today, and I was asked to see her to be sure that there is no an acute neurologic disorder. The patient is not speaking and generally not following commands, but she has had some purposeful reactions. Objective: Vital Signs Temp Pulse Resp BP Pulse Ox 36.3 C 68 18 152/73 H 97 08/05/16 15:25 08/05/16 15:25 08/05/16 15:25 08/05/16 15:25 08/05/16 15:25 Laboratory Results 08/05/16 10:30 08/05/16 10:30 The patient is awake with her eyes closed and non verbal. She is clearly able to control her upper extremities by not letting the arms fall to her face and purposefully moves them to her side when I lift them. She has resistance to my attempt to passively open her eyes. Pupils are 3mm and reactive. She did open her mouth for me partially. There is at least antigravity strength in all the extremities. Reflexes 2+. No Babinski signs. CT head was reviewed and looks stable with chronic microvascular disease changes. Allergies/Adverse Reactions: No Known Allergies Allergy (Verified 07/31/16 12:25)
[2016-08-05] MEDS: DONEPEZIL HCL 5 MG TAB PO SCH (22:24)
[2016-08-05] MEDS: MELATONIN 3 MG TAB PO SCH (22:25)
[2016-08-06] MEDS: DULoxetine 20 MG CAP PO SCH ×2 (00:38→08:15)
[2016-08-06] MEDS: traZODone 50 MG TAB PO PRN (00:39)
[2016-08-06] MEDS: DONEPEZIL HCL 5 MG TAB PO SCH (00:39)
[2016-08-06] MEDS: MELATONIN 3 MG TAB PO SCH (00:39)
[2016-08-06] MEDS: IBUPROFEN 200 MG TAB PO SCH ×2 (00:39→08:15)
[2016-08-06] MEDS: ENOXAPARIN 40 MG/0.4 ML SYR SC SCH (08:15)
[2016-08-06] MEDS: GLUCOSAMINE/CHONDROITIN CAP PO SCH (08:16)
--- NOTE | 2016-08-06 09:46 | PDIAF ---
- Diagnosis Diagnosis: FTT Code Status: Full Code - Medication Management Discharge Medications: Medications to Continue on Transfer oxyCODONE IR [Oxycodone Ir (*)] 5 mg PO Q8HRS PRN 04/27/12 [Last Taken 03/26/13 11:00] Diclofenac Sodium [Voltaren Gel (*)] 2 gm TP QID 07/31/16 [Last Taken Unknown] Donepezil HCl [Aricept 5 MG (*)] 5 mg PO HS 07/31/16 [Last Taken Unknown] Duloxetine HCl [Cymbalta] 20 mg PO BID 07/31/16 [Last Taken Unknown] Estradiol [Estrace Vaginal (*)] 0.125 cholo VG Q4D@21 07/31/16 [Last Taken Unknown ] Glucosamine/Chondroitin [Glucosamine/Chondroitin (*)] 1 each PO DAILY 07/31/16 [ Last Taken Unknown] Herbals/Supplements -Info Only 1 ea PO DAILY 07/31/16 [Last Taken Unknown] Ibuprofen [Motrin (*)] 200 mg PO BID 07/31/16 [Last Taken Unknown] Levothyroxine [Synthroid 75 mcg (*)] 75 mcg PO MOTUWETHFRSA 07/31/16 [Last Taken Unknown] Melatonin [Melatonin 3 MG (*)] 3 mg PO HS 07/31/16 [Last Taken Unknown] traZODone [traZODONE 50MG (*)] 50 - 100 mg PO HS PRN 07/31/16 [Last Taken Unknown] Acetaminophen [Tylenol 325mg (*)] 650 mg PO Q4HRS PRN #0 tab 08/06/16 [Last Taken Unknown] Discharge Medications: Refer to the Discharge Home Medication list for PRN reason. PICC Care - Routine: N/A - Orders Services needed: Registered Nurse, Physical Therapy, Occupational Therapy Diet Recommendation: no restrictions on diet - Follow Up Care Current Providers and Referrals: Mary Suarez MD [Primary Care Provider] - As per Instructions
[2016-08-06] MEDS: ACETAMINOPHEN 325 MG TAB PO PRN ×2 (12:51→17:05)
--- NOTE | 2016-08-06 13:28 | GDS ---
[f rep st] DISCHARGE SUMMARY DISCHARGE DIAGNOSES: 1. Change in consciousness. 2. Failure to thrive. 3. Hyponatremia. 4. Anemia. 5. Dementia. 6. Hypothyroidism. 7. Chronic neck pain. PROCEDURES DONE: 1. CT of the head. 2. Repeat CT of the head. CONSULTATIONS: Neurology. PHYSICAL EXAM: GENERAL: The patient is alert. VITAL SIGNS: Afebrile at 36.3 , pulse is 68, respiratory rate 14, blood pressure is 164/84, saturating 98% on room air. I have seen and evaluated the patient on the day of discharge. HOSPITAL COURSE: 1. The patient is a 71-year-old female who was brought to the emergency room by her primary care physician. She was evaluated and diagnosed with failure to thrive. This has been an ongoing problem for the patient. Her BMI is 16. She has been evaluated by speech therapy as well as physical therapy and occupational therapy. She is not felt to be safe to be discharged home. 2. Change in consciousness. The patient was evaluated by Neurology. It was felt that this was a stress-induced response. It is completely resolved prior to disposition. 3. Hyponatremia. This is resolved with fluids and was secondary to dehydration. 4. Anemia. This is multifactorial and close to the patient's baseline. 5. Dementia. Ethics has arranged a proxy during this hospitalization who will assist in helping the patient make decisions. 6. Hypothyroidism. Her Synthroid dose has been adjusted during this hospital course secondary to a low TSH. DISPOSITION: The patient will be discharged to a locked memory unit with further intervention to be determined in the outpatient setting. She will follow up with her primary care physician, Dr. Mary Suarez. DISCHARGE MEDICATIONS: Please refer to EMR form. TIME SPENT: I spent greater than 35 minutes in the care, coordination, and management of this patient's disposition. /[id number]/MODL MTDD
[2016-08-06 16:21] VITALS: BP 109/58; PULSE 77; RESP 18; TEMP 97.9; O2SAT 93
== END 2016-08-06 17:19 | DRG 641 ==
LOC: F3E 16:18
PROVIDERS: ADMIT Student in an Organized Health Care Education/Training Program; ATTEND Student in an Organized Health Care Education/Training Program
DX: R62.7 Adult failure to thrive (principal); R41.82 Altered mental status, unspecified; E87.1 Hypo-osmolality and hyponatremia; E03.9 Hypothyroidism, unspecified; D64.9 Anemia, unspecified; F03.90 Unspecified dementia, unspecified severity, without behavioral disturbance, psychotic disturbance, mood disturbance, and anxiety
CPT/HCPCS: 82607-90; 92523-GN; 97116-GP; 97161-GP; 97165-GO; 97532-GN; G0463-PO; G8978-GP-CI; G8979-GP-CI; G8980-GP-CI; G8987-GO-CL; G8988-GO-CJ; G9168-GN-CM; G9169-GN-CK; J1650

== ENCOUNTER → 2017-06-19 | Outpatient (CLI) | payer OTHER, MEDICARE | LOC: BMCIMAGING 14:06 | PROVIDERS: ATTEND Family Medicine Geriatric Medicine | DX: Z12.31 Encounter for screening mammogram for malignant neoplasm of breast (principal) | CPT/HCPCS: G0202 ==

== ENCOUNTER → 2017-08-20 | Outpatient (CLI) | payer OTHER, MEDICARE | LOC: CIMAGING 13:19 | PROVIDERS: ATTEND Pain Medicine Interventional Pain Medicine | DX: M41.85 Other forms of scoliosis, thoracolumbar region (principal); B02.23 Postherpetic polyneuropathy; Z79.891 Long term (current) use of opiate analgesic | CPT/HCPCS: 72100-PO ==

== ENCOUNTER 2018-03-31 12:30 | Emergency (ER) | payer OTHER, MEDICARE ==
--- NOTE | 2018-03-31 12:58 | EDPHY ---
HPI/HX/ROS/PE/MDM Narrative: CHIEF COMPLAINT: Fall, constipation HISTORY OF PRESENT ILLNESS: This patient is a 73-year-old female presenting following an unwitnessed mechanical fall early Friday morning. She states she tripped over a rug. She did strike her head and sustained a small skin tear lateral to her right eye from her glasses. She denies any loss of consciousness. She complains of right- sided rib pain. This is exacerbated by movement. She endorses neck pain. Denies nausea or vomiting. Today, she and her caregiver called [facility] for evaluation due to continued discomfort. At that time, the patient was noted to have abdominal distention. Providers were concerned for constipation. The patient states her last bowel movement was about one week ago. Per the [facility] note, the patient has been leaking stool for the past week as well. The patient denies history of abdominal surgeries. She does wear a buprenorphine patch for pain. Her regroover at bedside notes the patient had a dental procedure Friday with about 4 hours of IV sedation, in case this contributed to the patient's constipation. No fever, chills, chest pain, shortness of breath , palpitations, vomiting, diarrhea, urinary complaints, headache, lightheadedness. HPI obtained partially from regroover at bedside and from [employer] report. Patient has history of TBI and is a poor historian. REVIEW OF SYSTEMS: A comprehensive 10 system review of systems is otherwise negative aside from elements mentioned in the history of present illness and medical decision making. PAST MEDICAL HISTORY: TBI. SOCIAL HISTORY: Transcript Evaluator at bedside. Lives at [facility] assisted living. Retired. VITAL SIGNS: Reviewed by me GENERAL: Well-developed, well-nourished, resting comfortably in no respiratory distress. HEENT: Skin tear lateral to right eye. Eyes: No icterus, no injection. Mouth: moist mucous membranes. No erythema or lesions. Neck: supple with no adenopathy. LUNGS: Crackles at right base, no wheezes. CARDIAC: Regular rate and rhythm, no rubs, murmurs or gallops. ABDOMEN: Abdominal distention and bilateral lower quadrant tenderness. Soft. BACK: Buprenorphine transdermal patch on right shoulder. No CVA tenderness. EXTREMITIES: Abrasion over right knee. No edema. Range of motion is normal throughout. NEURO: Alert and oriented, grossly nonfocal. SKIN: Warm and dry, no rash. PSYCHIATRIC: Normal mentation, no agitation. Portions of this note were transcribed by a medical technologist prn. I personally performed a history, physical exam, medical decision making, and confirmed accuracy of information the transcribed note. ED Course: 73 y/o female presents with right-sided rib pain following a fall four days ago. She did strike her head, small skin tear present lateral to right eye. On exam, no ecchymosis or palpable deformities to her ribs. Crackles at right base , no wheezes. Patient has abdominal distention and bilateral lower quadrant tenderness. IV established. Plan for chest x-ray, CT head/neck, CT abdomen, labs including CBC, chemistries. CXR negative for acute processes. No rib fractures, pleural effusions, infiltrates. 15:[address] Vargas, radiologist. CT head/cervical spine negative for acute processes. 15:[address] abdomen/pelvis shows distended bladder, distended rectum, stool impaction. Patient had an enema. I discussed the importance of a bowel protocol. She and her caregiver would prefer to be discharged back to home to continue to address her significant constipation. Plan to discharge home in good condition. Follow up and return precautions discussed. Recommended magnesium citrate for constipation relief. The patient is comfortable with this plan. MDM: Diff dx considered included but not limited to rib fracture, pulmonary contusion , intrathoracic injury, intracranial injury, cervical spine injury, abdominal SBO, obstipation, constipation. - Data Points Imaging Results: CT Abd Pelvis: Impression: 1. Significant degree of rectal distention due to stool burden. Recommend disimpaction. The remainder of the colon contains moderate stool and there is likely an underlying element of constipation. 2. Distention of the bladder. 3. Small amount of fluid in the right pericolic gutter. 4. Mild extra and intrahepatic ductal dilatation. Consider correlating with LFTs and obtaining ERCP or MRCP if abnormal. 5. Bibasilar airspace opacities, probably atelectasis or infectious/inflammatory. Findings and recommendations discussed with Honey Underwood MD at 1524 hour, 03/31/2018. Dictated By: Nancy Vargas MD CT Head and Cervical Spine: Impression: No acute intracranial process or cervical spine fracture/ subluxation. Findings and recommendations discussed with Honey Underwood MD at 1512 hour, 03/31/2018. Dictated By: Nancy Vargas MD CXR: Impression: 1. No active cardiopulmonary disease seen. Dictated By: Yusef Salvador MD Imaging: Discussed imaging studies w/ call center recruiter Radiologist, I viewed and interpreted images myself Laboratory Results: Laboratory Results 03/31/18 13:45 03/31/18 13:45 Medications Given: Discontinued Medications Sodium Chloride (Ns) 1,000 mls @ 0 mls/hr IV ONCE ONE; Wide Open PRN Reason: Protocol Stop: 03/31/18 13:10 Last Admin: 03/31/18 13:47 Dose: 1,000 mls Miscellaneous Information (Patch Removal) 1 ea TD DAILY21 LUCAS Stop: 09/27/18 20:59 Last Admin: 03/31/18 14:43 Dose: Not Given Miscellaneous Medication (Icy Hot Lidocaine/Menthol 4%/1% Patch) 1 patch TD EDNOW ONE Stop: 03/31/18 13:10 Last Admin: 03/31/18 13:47 Dose: 1 patch General Time Seen by Provider: 03/31/18 12:55 Initial Vital Signs: Initial Vital Signs Temperature (C) 37 C 03/31/18 12:40 Heart Rate 93 03/31/18 12:40 Respiratory Rate 18 03/31/18 12:40 Blood Pressure 107/74 03/31/18 12:40 O2 Sat (%) 94 03/31/18 12:40 O2 Delivery Mode Room Air Allergies/Adverse Reactions: No Known Allergies Allergy (Verified 03/31/18 12:36) Home Medications: Medication Instructions Recorded Diclofenac Sodium 1% [Voltaren Gel 2 gm TP QID 07/31/16 (*)] Donepezil HCl [Aricept 5 MG (*)] 5 mg PO HS 07/31/16 Duloxetine HCl [Cymbalta] 20 mg PO BID 07/31/16 Estradiol [Estrace Vaginal (*)] 0.125 cholo VG Q4D@21 07/31/16 Glucosamine/Chondroitin 1 each PO DAILY 07/31/16 [Glucosamine/Chondroitin (*)] Herbals/Supplements -Info Only 1 ea PO DAILY 07/31/16 Ibuprofen [Motrin (*)] 200 mg PO BID 07/31/16 Levothyroxine [Synthroid 75 mcg 75 mcg PO MOTUWETHFRSA 07/31/16 (*)] Melatonin [Melatonin 3 MG (*)] 3 mg PO HS 07/31/16 traZODone [traZODONE 50MG (*)] 50 - 100 mg PO HS PRN 07/31/16 Acetaminophen [Tylenol 325mg (*)] 650 mg PO Q4HRS PRN #0 tab 08/06/16 LYRICA 03/31/18 morphINE 03/31/18 Departure - Departure Disposition: Home, Routine, Self-Care Clinical Impression: Abdominal distention, History of fall Constipation Qualifiers: Constipation type: other constipation type Qualified Code(s): K59.09 - Other constipation Rib contusion Qualifiers: Encounter type: initial encounter Laterality: right Qualified Code(s): S20.211A - Contusion of right front wall of thorax, initial encounter Condition: Good Instructions: Constipation (ED), Rib Contusion (ED) Additional Instructions: I recommend lidocaine patches and high-dose Tylenol as needed for pain in your chest wall. I will not increase your opiate as you have significant constipation. I recommend magnesium citrate as treatment for the constipation. Please take half of a bottle magnesium citrate and mix it with 16 oz of Gatorade. Drink this over 15 min. Wait 4 hr. If you are not having significant stool output at that time, please repeat with the other half of the bottle magnesium citrate. Please follow up with your primary care physician if you develop significant shortness of breath, worsening chest pain, lightheadedness, dizziness, blood in the stool, or other concerns. Referrals: Mandeep De La O MD [Primary Care Provider] - As per Instructions Report Scribed for: Honey Underwood Report Scribed by: Roxy Lal Date of Report: 03/31/18 Time of Report: 12:58
[2018-03-31] MEDS ORDERED: NS 1,000 ML IV ONE (13:09)
[2018-03-31] MEDS ORDERED: LIDOCAINE 4%/MENTHOL 1% PATCH TD ONE (13:09)
[2018-03-31 14:07] LABS: PLATELET COUNT 296 10^3/uL (150-400)
[2018-03-31 14:15] LABS: INR 0.99 (0.83-1.16); PROTIME(PATIENT) 13.3 SEC (12.0-15.0)
[2018-03-31] MEDS ORDERED: IOPAMIDOL (ISOVUE-300) 100 ML BTL ONE (14:24)
[2018-03-31 17:23] VITALS: BP 125/78
[2018-03-31] MEDS ORDERED: PATCH REMOVAL 1 EA PATCH TD SCH (21:00)
== END 2018-03-31 17:23 | disposition home or self-care (01) ==
DX: K59.00 Constipation, unspecified (principal); S20.211A Contusion of right front wall of thorax, initial encounter; S80.211A Abrasion, right knee, initial encounter; Z66 Do not resuscitate; W01.198A Fall on same level from slipping, tripping and stumbling with subsequent striking against other object, initial encounter; Y92.9 Unspecified place or not applicable; Y93.9 Activity, unspecified; Y99.9 Unspecified external cause status
CPT/HCPCS: 70450; 71046; 72125; 74177; 99285; Q9967

== ENCOUNTER → 2018-08-07 | Outpatient (CLI) | payer OTHER, MEDICARE | LOC: BMCIMAGING 13:45 | DX: Z12.31 Encounter for screening mammogram for malignant neoplasm of breast (principal) ==

== ENCOUNTER 2019-01-11 08:18 | Emergency (ER) | payer OTHER, MEDICARE | END 2019-01-11 09:29 | disposition home or self-care (01) ==

== ENCOUNTER 2019-01-12 09:14 | Inpatient (IN) | payer OTHER, MEDICARE | END 2019-01-15 13:33 | LOC: F3E 11:31 ==